=== PATIENT | female | born 1980 | race Caucasian/White ===

== ENCOUNTER 2021-10-18 02:57 | Emergency (ER) | payer BC ==
[2021-10-18] MEDS ORDERED: Ketorolac Tromethamine 30 MG/ML VIAL ONE (04:05)
[2021-10-18] MEDS ORDERED: Lidocaine 1% (PF) 30 ML VIAL ONE (04:11)
== END 2021-10-18 04:49 | disposition home or self-care (01) ==
LOC: CSHERS 02:57
DX: N90.7 Vulvar cyst (principal); K21.9 Gastro-esophageal reflux disease without esophagitis; I10 Essential (primary) hypertension; G43.909 Migraine, unspecified, not intractable, without status migrainosus; Z79.899 Other long term (current) drug therapy
CPT/HCPCS: 56405; J1885; J2001